=== PATIENT | male | born 1955 | race Caucasian/White ===

== ENCOUNTER → 2020-01-11 12:58 | Outpatient (CLI) | payer OTHER, SELFPAY ==
--- NOTE | ~2020-01-11 | XR_ITS ---
EXAMINATION: XR knee RT min 4V DATE: 01/11/2020 13:16 INDICATION: Right knee pain and swelling. TECHNIQUE: 4 views of right knee were obtained. COMPARISON: None. FINDINGS: There is varus angulation at the knee. No fracture. There is moderate osteoarthritis of med ial compartment and mild osteoarthritis of lateral and patellofemoral compartments. No knee joint eff usion. IMPRESSION: 1. Moderate right knee osteoarthritis. Reviewed, dictated and finalized at location A. [employer]
== END ==
PROVIDERS: PCP Family Medicine; Visit Provider Family Medicine
DX: M17.11 Unilateral primary osteoarthritis, right knee (principal)
CPT/HCPCS: 73564

== ENCOUNTER 2020-04-04 14:14 | Outpatient (CLI) | payer OTHER, SELFPAY ==
--- NOTE | ~2020-04-04 | XR_ITS ---
XR abdomen/kub 1V 04/04/2020 14:10 INDICATION: Abdomen pain TECHNIQUE: KUB COMPARISON: None FINDINGS: Bowel gas pattern is normal. There is no evidence of free air, mass, organomegaly, ascites or obstruction. No abnormal calculi are seen. There are prosthetic disc devices at L5-S1. The bones appear intact. IMPRESSION: 1: No acute abdominal abnormality identified. Reviewed, dictated and finalized at location A.
== END 2020-04-04 14:15 | disposition home or self-care (01) ==
PROVIDERS: PCP Family Medicine; Visit Provider Family Medicine
DX: R10.31 Right lower quadrant pain (principal)
CPT/HCPCS: 74018

== ENCOUNTER 2020-04-09 08:33 | Outpatient (CLI) | payer OTHER, SELFPAY ==
--- NOTE | ~2020-04-09 | US_ITS ---
EXAMINATION: US art doppler w zee [place] EXAM DATE: 04/09/2020 09:21 INDICATION: Numbness to feet, paresthesia. TECHNIQUE: Segmental pressures and plethysmographic and Doppler waveforms of the brachial and lower e xtremity arteries were obtained. There is no prior study for comparison. FINDINGS: Right and left brachial artery pressures of 124 mm Hg and 129 mm Hg, respectively, are concordant (no rmal difference <= 30 mmHg). The right and left thigh-brachial pressure indices are 1.10, 1.06, resp ectively (normal > 1.2). RIGHT LEG: The ankle-brachial index (DOMINGA) is 1.15 (normal >= 0.9-1). The great toe-brachial index (TBI) is 0.67 (normal >= 0.65). The lower extremity ratios, segmental pressure gradients as follows; Proximal superficial femoral artery:- 1.10 (142 mmHg). Distal superficial femoral artery: ----- 1.13 (146 mmHg). Popliteal: 1.02 (131 mmHg). Dorsalis pedis: 1.07 (138 mmHg). Posterior tibial: 1.15 (140 mmHg). (Normal gradients <= 20-30 mmHg between adjacent levels on the same leg or the same levels on the two legs). Arterial waveforms are triphasic, normal. LEFT LEG: The ankle-brachial index (DOMINGA) is 1.14 (normal >= 0.9-1). The great toe-brachial index (TBI) is 0.89 (normal >= 0.65). The lower extremity ratios, segmental pressure gradients as follows; Proximal superficial femoral artery:- 1.06 (137 mmHg). Distal superficial femoral artery: ----- 1.17 (151 mmHg). Popliteal: 1.20 (155 mmHg). Dorsalis pedis: 1.06 (137 mmHg). Posterior tibial: 1.14 (147 mmHg). (Normal gradients <= 20-30 mmHg between adjacent levels on the same leg or the same levels on the two legs). Arterial waveforms are triphasic, normal. IMPRESSION: 1. Right ankle-brachial index 1.15, normal. 2. Left ankle-brachial index 1.14, normal. 3. Segmental pressures as above. Reviewed, dictated and finalized at location A.
== END 2020-04-09 08:34 | disposition home or self-care (01) ==
PROVIDERS: PCP Family Medicine; Visit Provider Family Medicine
DX: R20.0 Anesthesia of skin (principal)
CPT/HCPCS: 93923

== ENCOUNTER 2020-05-13 01:43 | Outpatient (CLI) | payer OTHER, SELFPAY ==
[2020-05-13 19:16] LABS: SARS-CoV-2 RNA PCR Negative
== END 2020-05-13 01:44 | disposition home or self-care (01) ==
LOC: ANHCOVIDDT 01:45
PROVIDERS: PCP Family Medicine; Visit Provider Internal Medicine Gastroenterology
DX: Z01.818 Encounter for other preprocedural examination (principal); Z11.59 Encounter for screening for other viral diseases
CPT/HCPCS: 87635; C9803; U0003

== ENCOUNTER 2020-05-15 02:05 | Day surgery (SDC) | payer OTHER, SELFPAY ==
[2020-05-12 10:01] VITALS: BMI 26.4
[2020-05-15 07:36] VITALS: BP 120/81; PULSE 72; RESP 16; TEMP 36.5; O2SAT 98; BMI 25.6
[2020-05-15] MEDS: LACTATED RINGERS 1,000 ML 150 ML IV CONT (07:46)
--- NOTE | 2020-05-15 07:57 | PM.IMHP ---
H&P: HPI History of Present Illness Chief complaint: Neoplasm Screening Narrative: Reason for visit colonoscopy. Impression: Screening colonoscopy. Patient has remote history of a colon polyp. Recommendation: Colonoscopy. History: This very pleasant gentleman is here for screening colonoscopy. He previously had a colonoscopy about 10 years ago that showed a polyp. GI review systems unremarkable. Physical examination: General: very pleasant patient in no acute distress. HEENT: Head was normocephalic sclerae is clear mouth without masses neck was supple. Heart: Rate rhythm regular without S3 or S4. Lungs: CTA. Abdomen: Soft with no guarding or rigidity. Bowel sounds were active. Neurologic: Cranial nerves 2 through 12 intact. No focal defects. No clonus. Musculoskeletal system: Revealed no joint tenderness or swelling no muscle atrophy. Extremities: Reveal no significant edema. Skin: Warm and dry with normal turgor. Mental status: intact. Patient is alert and oriented. Review of Systems Review of Systems: All systems reviewed & are unremarkable except as noted in HPI and below Meds Home Medications and Allergies Home Medications Medication Instructions Recorded Confirmed Type escitalopram oxalate 25 mg PO DAILY 05/12/20 05/12/20 History Allergies Allergy/AdvReac Type Severity Reaction Status Date / Time No Known Allergies Allergy Verified 05/15/20 07:35 Vital Signs Vital Signs - 24 hr 05/15/20 07:36 Temperature 36.5 C Pulse Rate 72 Respiratory Rate 16 Blood Pressure 120/81 Pulse Oximetry 98
--- NOTE | 2020-05-15 08:11 | WPDANESEPPF ---
Anes - Initial Pre Proc Eval Procedure: Operation Date: 05/15/20 08:30 Proposed Procedures p Screening Colonoscopy - Glynn Osborn DO Date/Time: 05/15/20 08:11 Surgeon: Glynn Osborn DO Pre Op Diagnosis: Neoplasm Screening Patient Data Age: 64 Gender: M Height: 6 ft Weight: 85.7 kg Last Vital Signs Temp 97.7 F 05/15/20 07:36 Pulse 72 05/15/20 07:36 Resp 16 05/15/20 07:36 BP 120/81 05/15/20 07:36 Pulse Ox 98 05/15/20 07:36 Allergies Allergy/AdvReac Type Severity Reaction Status Date / Time No Known Allergies Allergy Verified 05/15/20 07:35 Home Medications Medication Instructions Recorded Confirmed Type escitalopram oxalate 25 mg PO DAILY 05/12/20 05/12/20 History Patient hx anesthesia problems: none Family hx anesthesia problems: none PMFSH Past Medical History Medical History (Updated 05/15/20 @ 08:11 by Alexi Calderón MD) Anxiety Depression Anes - Eval Final PreProcedure Day of Procedure 05/15/20 08:11 Patient weight: normal Heart: regular rate and rhythm Lungs: clear to auscultation Airway: Mallampati scale class II Neurological: alert and oriented Last oral intake: >/= 8 hours ASA classification: II Emergent: no Anesthetic plan: proceed Anesthesia type and monitoring: general GIVS and standard monitoring Informed Consent: The patient's anesthetic plan and its attendant risks and benefits were discussed with the patient/family/POA. Questions were solicited and answers provided to the satisfaction of the patient/family/POA.
[2020-05-15 09:23] VITALS: BP 95/59; PULSE 62; RESP 12; O2SAT 99
[2020-05-15 09:33] VITALS: BP 112/73; PULSE 60; RESP 12; O2SAT 99
[2020-05-15 09:43] VITALS: BP 121/86; PULSE 61; RESP 15; O2SAT 100
== END 2020-05-15 09:56 | disposition home or self-care (01) ==
PROVIDERS: PCP Family Medicine; Visit Provider Internal Medicine Gastroenterology
PROC: 0DJD8ZZ Inspection of Lower Intestinal Tract, Via Natural or Artificial Opening Endoscopic (ICD-10-PCS; CPT 45378; principal; 2020-05-15 08:30)
DX: Z12.11 Encounter for screening for malignant neoplasm of colon (principal); K64.8 Other hemorrhoids; Z86.010 Personal history of colon polyps; F41.8 Other specified anxiety disorders
CPT/HCPCS: 45378; 87635; C9803; J2704; J7120; U0003

== ENCOUNTER 2020-05-23 13:55 | Outpatient (CLI) | payer OTHER, SELFPAY ==
--- NOTE | ~2020-05-23 | US_ITS ---
EXAMINATION: US soft tissue groin RT DATE: 05/23/2020 14:35 INDICATION: Right groin pain TECHNIQUE: Multiple grayscale and Doppler ultrasound images of the right groin were obtained includin g with Valsalva while imaging the region of the right inguinal canal. COMPARISON: None FINDINGS: No evident right inguinal hernia. No pathologically enlarged inguinal lymphadenopathy or abnormal mas s or fluid collections identified. The right common femoral vein and greater saphenous vein outflow a re patent and compressible. No aneurysm along the right common femoral artery. IMPRESSION: 1. Normal study. No evident right inguinal hernia. Reviewed, dictated and finalized at location A.
== END 2020-05-23 13:56 | disposition home or self-care (01) ==
PROVIDERS: PCP Family Medicine; Visit Provider Family Medicine
DX: M79.89 Other specified soft tissue disorders (principal)
CPT/HCPCS: 76882

== ENCOUNTER → 2020-06-18 15:18 | Outpatient (CLI) | payer OTHER, SELFPAY ==
--- NOTE | ~2020-06-18 | CT_ITS ---
EXAMINATION: CT pelvis wo con EXAM DATE: 06/18/2020 15:35 INDICATION: Right groin pain. TECHNIQUE: Spiral CT pelvis wo con was performed without contrast. Axial, coronal and sagittal imag es were reviewed. The dose-length product (DLP) for this examination was 504.45 mGy-cm. The exposur e was tailored according to patient size (auto mA exposure control), and iterative reconstruction ( IR) was used as additional dose reduction technique. There is no prior study for comparison. FINDINGS: Prostate and bladder are unremarkable. Normal appendix. No inguinal hernia. L5-S1 interbody , osseous fusion. Visualized small bowel normal. No pelvic lymphadenopathy. IMPRESSION: Unremarkable CT pelvis exam. Reviewed, dictated and finalized at location A.
== END ==
PROVIDERS: PCP Family Medicine; Visit Provider Family Medicine
DX: R10.30 Lower abdominal pain, unspecified (principal)
CPT/HCPCS: 72192

== ENCOUNTER → 2021-01-26 09:43 | Outpatient (CLI) | payer OTHER, SELFPAY ==
--- NOTE | ~2021-01-26 | CT_ITS ---
EXAMINATION: CT lumbar spine wo con EXAM DATE: 01/26/2021 10:17 INDICATION: Lumbar stenosis w neurogenic claudication. Lumbar fusion. Low back pain radiating to righ t buttock. TECHNIQUE: Spiral CT of the lumbar spine was performed without contrast. Axial, coronal and sagittal images were reviewed. The dose-length product (DLP) for this examination was 999.75 mGy-cm. The e xposure was tailored according to patient size (auto mA exposure control), and iterative reconstructi on (ASIR) was used as additional dose reduction technique. Correlation is made to lumbar MR examinati on 07/06/2019. FINDINGS: On the prior MR patient had interbody fusion at L5-S1. There is no also interbody device at L3-4, and there are posterior pedicular screws along with bone graft L3-L5. There is lucency surroun ding both L5 screws which could indicate some amount of loosening. There are no acute fractures ident ified. There is 2 mm retrolisthesis L2 on L3. Vertebral body heights are maintained. Paraspinal soft tissue is unremarkable. Level by level evaluation: T11-12: There is a mild diffuse disc bulge. Facet arthropathy: Minimal. Neural foraminal stenosis: No stenosis. Central canal stenosis: No stenosis. T12-L1: Disc does not extend beyond the endplate margin. Facet arthropathy: Minimal. Neural foraminal stenosis: No stenosis. Central canal stenosis: No stenosis. L1-L2: There is a mild to moderate diffuse disc bulge. Facet arthropathy: Mild. Neural foraminal stenosis: Mild right. Central canal stenosis: Mild. L2-L3: There is a mild to moderate diffuse disc bulge. Facet arthropathy: Mild to moderate. Neural foraminal stenosis: Mild to moderate bilateral. Central canal stenosis: Mild to moderate. L3-L4: This level is fused. Facet arthropathy: Surgical changes. Neural foraminal stenosis: Mild right. Central canal stenosis: No stenosis. L4-L5: There is a moderate diffuse disc bulge. Facet arthropathy: Moderate . Ligamentum flavum enlargement . Neural foraminal stenosis: Mild to moderate bilateral. Central canal stenosis: Severe. L5-S1: This level is fused. Facet arthropathy: Mild. Neural foraminal stenosis: Moderate left, mild to moderate right. Central canal stenosis: No stenosis. IMPRESSION: 1. Lucency surrounding both L5 screws could indicate some amount of loosening. 2. L4-5 severe central canal stenosis. Reviewed, dictated and finalized at location A.
== END ==
DX: M48.062 Spinal stenosis, lumbar region with neurogenic claudication (principal)
CPT/HCPCS: 72131

== ENCOUNTER 2024-07-25 15:43 | Outpatient (CLI) | payer MEDICARE, SELFPAY ==
[2024-07-25 16:10] LABS: Basophils Percent Auto 0.6 % (0.2-1.2); Eosinophils Absolute Auto 0.1 K/mm3 (0-0.3); Eosinophils Percent Auto 2.4 % (0-4.4); Hematocrit 39.2 % (42.0-52.0); Hemoglobin 13.5 g/dL (14.0-18.0); Immature Granulocyte Absolute 0.01 K/mm3 (0.00-0.031); Immature Granulocyte Percent A 0.2 % (0-0.5); Immature Platelet Fraction Pct 5.9 % (0.9-11.2); Lymphocytes Absolute Auto 1.85 K/mm3 (0.9-3.2); Lymphocytes Percent Auto 36.6 % (18.3-44.2); Mean Corpuscular HGB Conc 34.4 g/dl (32-36); Mean Corpuscular Hemoglobin 32.7 pg (26-34); Mean Corpuscular Volume 94.9 fl (80-100); Mean Platelet Volume 10.5 fl (7.4-10.4); Monocytes Absolute Auto 0.6 K/mm3 (0.1-0.6); Monocytes Percent Auto 11.3 % (2.6-8.5); Neutrophils Absolute Auto 2.5 K/mm3 (1.3-6.7); Neutrophils Percent Auto 48.9 % (45.5-73.1); Platelet Count Result 122 k/mm3 (150-375); Red Blood Count 4.13 M/mm3 (4.6-6.20); White Blood Count 5.1 K/mm3 (4.5-10.0)
[2024-07-25 18:42] LABS: Iron 104 ug/dL (49-181)
[2024-07-25 18:51] LABS: Percent Iron Saturation 34 % (20-50)
[2024-07-25 19:02] LABS: Alanine Aminotransferase 25 U/L (6-50); Albumin Level 4.3 g/dL (3.5-5.1); Alkaline Phosphatase 62 U/L (38-126); Anion Gap 9 mmol/L (4-12); Aspartate Amino Transferase 34 U/L (17-59); Bilirubin,Total 0.3 mg/dL (0.2-1.3); Blood Urea Nitrogen 25 mg/dL (9-20); Carbon Dioxide 30 mmol/L (22-30); Chloride 93 mmol/L (98-107); Estimated Glomerular Filt Rate 55; Glucose 93 mg/dL (65-110); Potassium 4.4 mmol/L (3.4-5.0); Sodium 132 mmol/L (137-145)
[2024-07-25 19:52] LABS: Folic Acid > 20.0 ng/mL (2.76->20)
[2024-07-28 06:10] LABS: Methylmalonic Acid 228 nmol/L (69-390)
[2024-07-31 23:49] LABS: Platelet Antibody, Direct NEGATIVE (NEGATIVE)
[2024-08-01 11:49] LABS: Soluble Transferrin Receptor 1.58 mg/L (0.76-1.76)
== END 2024-07-25 15:44 | disposition home or self-care (01) ==
PROVIDERS: Visit Provider Internal Medicine Hematology & Oncology
DX: D64.9 Anemia, unspecified (principal); D69.59 Other secondary thrombocytopenia
CPT/HCPCS: 36415; 80053; 82607; 82728; 82746; 83540; 83550; 83921; 84238; 85025; 85055; 86023

== ENCOUNTER 2024-08-01 10:16 | Outpatient (CLI) | payer MEDICARE, SELFPAY ==
--- NOTE | ~2024-08-01 | US_ITS ---
Abdominal Sonogram: Real-time sonographic imaging of the abdomen was performed. Clinical History: Thrombocytopenia Findings: The liver appears normal with no evidence of mass lesion or bile duct dilatation. Main por kentrell vein demonstrates normal direction of flow. The spleen is normal in size without evidence of foca l lesion. The gallbladder is well distended, and appears normal with no evidence of gallstone or wal l thickening. The common bile duct measures 3 mm. The visualized pancreas, aorta, and IVC are unrema rkable. The right kidney measures 11.2 cm in length and the left kidney measures 11.3 cm. There is no hydronephrosis or renal calculus. Impression: Unremarkable abdominal ultrasound. Reviewed, dictated and finalized at location . Impression: Unremarkable abdominal ultrasound.
== END 2024-08-01 10:17 | disposition home or self-care (01) ==
LOC: MICIMG 10:17
PROVIDERS: PCP Internal Medicine Hematology & Oncology; Visit Provider Internal Medicine Hematology & Oncology
DX: D69.59 Other secondary thrombocytopenia (principal)
CPT/HCPCS: 76700